=== PATIENT | male | born 1955 | race Caucasian/White ===

== ENCOUNTER 2017-10-16 07:22 | Day surgery (SDC) | payer MEDICARE, MEDICAID ==
[2017-10-10 11:47] LABS: BASOPHILS # (AUTO) 0.1 X10'3 (0-0.2); BASOPHILS % (AUTO) 0.6 % (0-1); EOSINOPHILS # (AUTO) 1.4 X10'3 (0-0.9); EOSINOPHILS % (AUTO) 12.1 % (0-6); LYMPHOCYTES # (AUTO) 1.8 X10'3 (1.1-4.8); LYMPHOCYTES % (AUTO) 15.5 % (21-51); MEAN CORPUSCULAR HEMOGLOBIN 28.7 PG (27.0-31.0); MEAN CORPUSCULAR HGB CONC 33.6 % (33.0-36.5); MEAN CORPUSCULAR VOLUME 85.4 FL (78-98); MEAN PLATELET VOLUME 7.8 FL (7.4-10.4); MONOCYTES # (AUTO) 0.9 X10'3 (0-0.9); NEUTROPHILS # (AUTO) 7.3 X10'3 (1.8-7.7); NEUTROPHILS % (AUTO) 63.8 % (42-75); PRE OP HEMATOCRIT 37.7 % (42.0-52.0); PRE OP HEMOGLOBIN 12.7 g/dL (14.0-17.9); PRE OP PLATELET COUNT 315 X10'3 (140-440); RED BLOOD COUNT 4.41 X10'6 (4.70-6.10); RED CELL DISTRIBUTION WIDTH 15.1 % (11.5-14.5)
[2017-10-10 11:48] LABS: CLARITY,URINE CLEAR (Clear); COLOR,URINE STRAW (Yellow); GLUCOSE, URINE NEGATIVE (Neg); KETONES,URINE NEGATIVE (Neg); LEUKOCYTE ESTERASE ,URINE NEGATIVE (Neg); NITRITES, URINE NEGATIVE (Neg); OCCULT BLOOD,URINE NEGATIVE (Neg); PROTEIN,URINE NEGATIVE (Neg); UROBILINOGEN,URINE 0.2 E.U/dL (0.2-1.0)
[2017-10-10 11:49] LABS: UA COLLECTION TYPE CLN CATCH MIDSTREAM
[2017-10-10 12:02] LABS: ALBUMIN 3.1 G/DL (3.4-5.0); ALBUMIN/GLOBULIN RATIO 0.8 (1.1-1.5); ALKALINE PHOSPHATASE 92 IU/L (46-116); BLOOD UREA NITROGEN 21 MG/DL (7-18); BUN/CREATININE RATIO 17.1 (5.4-32.0); CALCIUM 8.7 MG/DL (8.5-10.1); CHLORIDE 103 MMOL/L (99-107); CREATININE 1.23 MG/DL (0.60-1.10); PRE OP ALT 23 U/L (30-65); PRE OP ANION GAP 9 (8-16); PRE OP AST 13 U/L (10-37); PRE OP BILIRUB, TOTAL 0.3 MG/DL (0.0-1.0); PRE OP GLUCOSE 103 MG/DL (70-104); PRE OP SODIUM 138 MMOL/L (135-145); TOTAL CARBON DIOXIDE 26.4 MMOL/L (24-32); TOTAL PROTEIN 7.2 G/DL (6.4-8.2); eGFR 59 ML/MIN
[2017-10-10 12:35] LABS: HEMOGLOBIN A1C 6.3 % (4.5-6.2)
[2017-10-16] VITALS (12 sets, daily range): BP systolic 101–150; BP diastolic 62–89
[~2017-10-16] VITALS: Ht 175.3 cm; Wt 129.6 kg
[~2017-10-16 07:22] MED LIST: ALBU0.63 NEB; ALBU18HF2 INH; AMLO2.5T2 PO; ASPI-1265 PO; BUDE10.2 INH; CITA40TA11 PO; CYCL1DRO EACHEYE; FAMO20TA8 PO; GLIM4TAB79 PO; LOSA50TA3 PO; METF500T7 PO; SIMV20TA5 PO; UMEC62.5 INH; albuterol 2.5 MG/3 ML nebule NEB ONE; ceFAZolin inj. 3,000 MG in normal saline 100ml IV soln 100 ML IV ONE; famotidine 20mg tablet PO ONE; ringers solution, lacted 1,000 ML IV SCH
[2017-10-16] MEDS ORDERED: ceFAZolin 1000mg inj ONE (09:49)
[2017-10-16] MEDS ORDERED: BUPIVAcaine/PF 2.5mg/ml (0.25%) 10ml vial ONE (09:49)
[2017-10-16] MEDS ORDERED: sevoflurane 250ml liquid IH ONE (10:02)
[2017-10-16] MEDS ORDERED: dexamethasone sod phosphate 10mg/ml inj ONE (10:02)
[2017-10-16] MEDS ORDERED: ringers solution, lacted 1,000 ML IV SCH (10:02)
[2017-10-16] MEDS ORDERED: morphine 4 MG/ML inj SYRINge IV PRN ×2 (10:05)
[2017-10-16] MEDS ORDERED: ondansetron/PF 4mg/2ml inj IV PRN (10:05)
[2017-10-16] MEDS ORDERED: meperidine/PF 25mg/ml syringe IV PRN ×2 (10:05)
[2017-10-16] MEDS ORDERED: proCHLORperazine 10 MG/2 ml inj IV PRN (10:05)
[2017-10-16] MEDS ORDERED: propofol inj 20 ML IV ONE (10:07)
[2017-10-16] MEDS ORDERED: fentaNYL/PF 50MCG/1 ML 2ML syringe ONE (10:07)
[2017-10-16] MEDS ORDERED: midazolam 2 mg/2 ml injection ONE (10:07)
[2017-10-16] MEDS ORDERED: rocuronium 10mg/ml inj IV ONE (10:07)
[2017-10-16] MEDS ORDERED: glycopyrrolate 0.2mg/ml inj ONE (11:20)
[2017-10-16] MEDS ORDERED: neostigmine methylsulfate 1 MG/ML 10ml vial ONE (11:20)
[2017-10-16] MEDS ORDERED: ondansetron/PF 4mg/2ml inj ONE (11:23)
[2017-10-16] MEDS: meperidine/PF 25mg/ml syringe IV PRN ×4 (11:46→12:41)
== END 2017-10-16 13:10 | disposition home or self-care (01) ==
LOC: PAS 07:22
PROVIDERS: ATTEND Surgery
DX: K40.90 Unilateral inguinal hernia, without obstruction or gangrene, not specified as recurrent (principal); D17.6 Benign lipomatous neoplasm of spermatic cord; J44.9 Chronic obstructive pulmonary disease, unspecified; E11.9 Type 2 diabetes mellitus without complications; G47.33 Obstructive sleep apnea (adult) (pediatric); I10 Essential (primary) hypertension; E66.01 Morbid (severe) obesity due to excess calories; K21.9 Gastro-esophageal reflux disease without esophagitis; F32.9 Major depressive disorder, single episode, unspecified; F41.8 Other specified anxiety disorders; Z79.82 Long term (current) use of aspirin; Z87.891 Personal history of nicotine dependence; Z79.84 Long term (current) use of oral hypoglycemic drugs; Z88.5 Allergy status to narcotic agent; Z68.41 Body mass index [BMI] 40.0-44.9, adult; Z88.8 Allergy status to other drugs, medicaments and biological substances; Z79.899 Other long term (current) drug therapy; Z98.890 Other specified postprocedural states
CPT/HCPCS: 36415; 49505; 71046; 80053; 81003; 82948; 83036; 85025; 93005; 94640; A6449; C1781; J0690; J1100; J2175; J2250; J2405; J2704; J2710; J3010; J3490; J7030; J7120; A7000

== ENCOUNTER 2017-10-16 19:39 | Emergency (ER) | payer MEDICARE, MEDICAID ==
[~2017-10-16] VITALS: Ht 175.3 cm; Wt 132.3 kg
[~2017-10-16 19:39] MED LIST changes: -albuterol 2.5 MG/3 ML nebule NEB ONE; -ceFAZolin inj. 3,000 MG in normal saline 100ml IV soln 100 ML IV ONE; -famotidine 20mg tablet PO ONE; -ringers solution, lacted 1,000 ML IV SCH
[2017-10-16 20:58] LABS: BASOPHILS % (AUTO) 0.4 % (0-1); EOSINOPHILS # (AUTO) 0.2 X10'3 (0-0.9); HEMATOCRIT 34.6 % (42.0-52.0); HEMOGLOBIN 11.4 g/dl (14.0-17.9); LYMPHOCYTES # (AUTO) 1.8 X10'3 (1.1-4.8); LYMPHOCYTES % (AUTO) 15.1 % (21-51); MEAN CORPUSCULAR VOLUME 84.8 FL (78-98); MEAN PLATELET VOLUME 7.6 FL (7.4-10.4); MONOCYTES % (AUTO) 8.4 % (2-12); NEUTROPHILS # (AUTO) 8.6 X10'3 (1.8-7.7); NEUTROPHILS % (AUTO) 74.1 % (42-75); PLATELET COUNT 297 X10'3 (140-440); RED BLOOD COUNT 4.08 X10'6 (4.70-6.10); RED CELL DISTRIBUTION WIDTH 15.1 % (11.5-14.5); WHITE BLOOD COUNT 11.6 X10'3 (4.5-11.0)
[2017-10-16] MEDS ORDERED: iohexol 300mg/ml 100ml inj. ONE (20:58)
[2017-10-16 21:09] LABS: PARTIAL THROMBOPLASTIN TIME 26 SECONDS (22-32); PROTHROMBIN TIME 10.3 SECONDS (9.0-12.0)
[2017-10-16 21:15] LABS: ALANINE AMINOTRANSFERASE 17 U/L (12-78); ALBUMIN 2.9 G/DL (3.4-5.0); ALBUMIN/GLOBULIN RATIO 0.8 (1.1-1.5); ALKALINE PHOSPHATASE 82 IU/L (46-116); ANION GAP 6 (8-16); ASPARTATE AMINO TRANSFERASE 10 U/L (10-37); BILIRUBIN,TOTAL 0.4 MG/DL (0.1-1.0); BLOOD UREA NITROGEN 16 MG/DL (7-18); BUN/CREATININE RATIO 13.3 (5.4-32.0); CALCIUM 8.2 MG/DL (8.5-10.1); CHLORIDE 102 MMOL/L (99-107); GLUCOSE 106 MG/DL (70-104); SODIUM 135 MMOL/L (135-145); TOTAL CARBON DIOXIDE 27.5 MMOL/L (24-32); TOTAL PROTEIN 6.5 G/DL (6.4-8.2); eGFR 61 ML/MIN
[2017-10-16] MEDS ORDERED: morphine 4 MG/ML inj SYRINge IV ONE (21:35)
[2017-10-16] MEDS ORDERED: ondansetron/PF 4mg/2ml inj IV ONE (21:35)
[2017-10-16 22:58] VITALS: BP 111/62
== END 2017-10-16 23:02 | disposition home or self-care (01) ==
LOC: ER 19:39
DX: K91.841 Postprocedural hemorrhage of a digestive system organ or structure following other procedure (principal); I10 Essential (primary) hypertension; J44.9 Chronic obstructive pulmonary disease, unspecified; E11.9 Type 2 diabetes mellitus without complications; Z87.891 Personal history of nicotine dependence; Z88.5 Allergy status to narcotic agent; Z79.82 Long term (current) use of aspirin; Z79.899 Other long term (current) drug therapy; Z98.890 Other specified postprocedural states
CPT/HCPCS: 36415; 74177; 80053; 85025; 85610; 85730; 96374; 96375; 99285; A6251; A6253; A6449; J2270; J2405; J7030; Q9967

== ENCOUNTER 2019-01-28 13:58 | Day surgery (SDC) | payer MEDICARE, MEDICAID ==
[2019-01-23 09:12] LABS: BASOPHILS # (AUTO) 0.1 X10'3 (0-0.2); BASOPHILS % (AUTO) 0.7 % (0-1); EOSINOPHILS # (AUTO) 0.5 X10'3 (0-0.9); EOSINOPHILS % (AUTO) 5.9 % (0-6); HEMATOCRIT 42.4 % (42.0-52.0); HEMOGLOBIN 14.1 g/dl (14.0-17.9); LYMPHOCYTES # (AUTO) 1.8 X10'3 (1.1-4.8); LYMPHOCYTES % (AUTO) 20.1 % (21-51); MEAN CORPUSCULAR HEMOGLOBIN 27.9 PG (27.0-31.0); MEAN CORPUSCULAR HGB CONC 33.2 g/dL (33.0-36.5); MEAN CORPUSCULAR VOLUME 84.2 FL (78-98); MEAN PLATELET VOLUME 7.9 FL (7.4-10.4); MONOCYTES # (AUTO) 0.9 X10'3 (0-0.9); MONOCYTES % (AUTO) 9.9 % (2-12); NEUTROPHILS # (AUTO) 5.7 X10'3 (1.8-7.7); NEUTROPHILS % (AUTO) 63.4 % (42-75); PLATELET COUNT 274 X10'3 (140-440); RED BLOOD COUNT 5.04 X10'6 (4.70-6.10); RED CELL DISTRIBUTION WIDTH 16.6 % (11.5-14.5)
[2019-01-23 09:21] LABS: PARTIAL THROMBOPLASTIN TIME 28 SECONDS (22-32)
[2019-01-23 09:32] LABS: ALBUMIN 3.3 G/DL (3.4-5.0); ANION GAP 7 (8-16); BLOOD UREA NITROGEN 13 MG/DL (7-18); BUN/CREATININE RATIO 11.3 (5.4-32.0); CALCIUM 8.8 MG/DL (8.5-10.1); CHLORIDE 105 MMOL/L (99-107); CREATININE 1.15 MG/DL (0.60-1.10); GLUCOSE 144 MG/DL (70-104); SODIUM 141 MMOL/L (135-145); TOTAL CARBON DIOXIDE 28.6 MMOL/L (24-32); eGFR 64 ML/MIN
[~2019-01-28] VITALS: Ht 176.5 cm; Wt 142.4 kg
[2019-01-28] VITALS (8 sets, daily range): BP systolic 110–138; BP diastolic 53–73
[~2019-01-28 13:58] MED LIST changes: +C,E,1CAP PO; -CITA40TA11 PO; -CYCL1DRO EACHEYE; +GLIM4TAB4 PO; -GLIM4TAB79 PO; -LOSA50TA3 PO; -METF500T7 PO; +METO25TA6 PO; +SIMV-42 PO; -SIMV20TA5 PO
[2019-01-28] MEDS ORDERED: normal saline 1,000 ML IV SCH (14:20)
[2019-01-28] MEDS ORDERED: LIDOcaine/PRILOcaine 5gm cream TP ONE (14:20)
[2019-01-28] MEDS ORDERED: LORazepam 0.5 MG tablet PO PRN (14:20)
[2019-01-28] MEDS ORDERED: diphenhydrAMINE 25mg capsule PO PRN (14:20)
[2019-01-28] MEDS ORDERED: MULT-1085 PO (15:18)
[2019-01-28] MEDS ORDERED: METO25TA6 PO (15:18)
[2019-01-28] MEDS ORDERED: AMMO225L14 TOP (15:18)
[2019-01-28] MEDS ORDERED: METF500T PO (15:18)
[2019-01-28] MEDS ORDERED: CYCL1DRO EACHEYE (15:18)
[2019-01-28] MEDS ORDERED: verapamil 2.5 mg/ml inj IV ONE (16:40)
[2019-01-28] MEDS ORDERED: LIDOcaine 1% (10mg/ml)w/preservative injection 20ml MDV ONE (16:40)
[2019-01-28] MEDS ORDERED: iohexol 350MG/ML 100ml bottle IV ONE ×2 (16:40→17:58)
[2019-01-28] MEDS ORDERED: heparin 1,000unit/ml 10ml vial 10 ML ONE (16:40)
[2019-01-28] MEDS ORDERED: fentaNYL/PF 50MCG/1 ML 2ML syringe ONE (16:40)
[2019-01-28] MEDS ORDERED: nitroGLYCERIN-Tridil 50MG/D5W 250 ML IV ONE (16:40)
[2019-01-28] MEDS ORDERED: midazolam 2 mg/2 ml injection ONE (16:40)
== END 2019-01-28 20:25 | disposition home or self-care (01) ==
LOC: SSTAY O 13:58
PROVIDERS: ATTEND Internal Medicine Interventional Cardiology
DX: R94.39 Abnormal result of other cardiovascular function study (principal); R06.02 Shortness of breath; I25.10 Atherosclerotic heart disease of native coronary artery without angina pectoris; I10 Essential (primary) hypertension; E11.9 Type 2 diabetes mellitus without complications; J44.9 Chronic obstructive pulmonary disease, unspecified; G47.33 Obstructive sleep apnea (adult) (pediatric); G89.29 Other chronic pain; Z79.899 Other long term (current) drug therapy; Z79.82 Long term (current) use of aspirin; Z79.84 Long term (current) use of oral hypoglycemic drugs; Z87.891 Personal history of nicotine dependence
CPT/HCPCS: 36415; 80048; 82948; 85025; 85610; 85730; 93005; 93458; 99152; 99153; C1769; C1894; J1644; J2001; J2250; J3010; J7030; Q0163; Q9967; A4620; A6258; J3490

== ENCOUNTER 2020-03-29 06:10 | Outpatient (CLI) | payer MEDICARE, MEDICAID ==
[~2020-03-29 06:10] MED LIST changes: +AMMO225L14 TOP; +CYCL1DRO EACHEYE; -GLIM4TAB4 PO; +GLIM4TAB7 PO; +METF500T PO; +MULT-1085 PO
== END 2020-03-29 23:59 | disposition home or self-care (01) ==
LOC: RT 06:10
PROVIDERS: ATTEND Internal Medicine Critical Care Medicine
DX: Z53.21 Procedure and treatment not carried out due to patient leaving prior to being seen by health care provider (principal)

== ENCOUNTER → 2020-09-13 | Outpatient (CLI) | payer MEDICARE, MEDICAID ==
[~2020-09-13] MED LIST changes: +LOP25T PO; -METO25TA6 PO
== END | disposition home or self-care (01) ==
LOC: RT 05:39
PROVIDERS: ATTEND Internal Medicine Critical Care Medicine
DX: R94.2 Abnormal results of pulmonary function studies (principal); J45.909 Unspecified asthma, uncomplicated
CPT/HCPCS: 94010; 94618